=== PATIENT | male | born 1965 | race Caucasian/White ===

== ENCOUNTER 2017-11-18 16:01 | Emergency (ER) | payer BC, OTHER ==
[~2017-11-18] VITALS: Ht 177.8 cm; Wt 77.5 kg
[2017-11-18] MEDS ORDERED: TRAM50TA2 PO (16:51)
[2017-11-18] MEDS ORDERED: LEVO200T5 PO (16:51)
[2017-11-18] MEDS ORDERED: ALPR-475 PO (16:51)
[2017-11-18 17:55] VITALS: BP 125/85
== END 2017-11-18 18:00 | disposition home or self-care (01) ==
LOC: ED 17:50
DX: S02.32XA Fracture of orbital floor, left side, initial encounter for closed fracture (principal); S02.82XA Fracture of other specified skull and facial bones, left side, initial encounter for closed fracture; E03.9 Hypothyroidism, unspecified; Y09 Assault by unspecified means; Y93.89 Activity, other specified; Y92.89 Other specified places as the place of occurrence of the external cause; Y99.8 Other external cause status
CPT/HCPCS: 70450; 70486; 99284